=== PATIENT | male | born 1940 | race Caucasian/White ===

== ENCOUNTER 2020-06-19 08:55 | Inpatient (IN) ==
[2020-06-13 12:44] LABS: Basophils % 0.9 % (0.0-0.8); Hematocrit 38.5 VOL% (42.0-52.0); Hemoglobin 12.6 GM/DL (14.0-18.0); Immature Granulocytes % 0.6 %; Immature Granulocytes Absolute 0.02 #; Lymphocytes # 1.1 10*3/uL (1.4-4.0); Lymphocytes % 30.6 % (21.2-54.2); Mean Corpuscular HGB Conc 32.7 GM/DL (32-36); Mean Corpuscular Volume 88.1 FL (87-102); Mean Platelet Volume 11.1 FL (9.6-12.0); Monocytes % 13.6 % (1.7-12.7); Neutrophils % 54.3 % (38.7-73.9); Platelet Count 181 T/CUMM (130-400); Red Blood Count 4.37 MC/CUMM (3.8-5.5); Red Cell Distribution Width 12.9 % (9.3-17.3); White Blood Count 3.5 T/CUMM (4-12)
[2020-06-13 13:15] LABS: Albumin 3.7 G/DL (3.4-5.0); Bilirubin,Total 0.5 MG/DL (0.2-1.0); Calcium 8.8 MG/DL (8.5-10.1); Osmolality,Calculated 283.3 MOS/KG (273-304); Potassium 4.4 MMOL/L (3.5-5.1); Total Protein 6.6 G/DL (6.4-8.2)
[~2020-06-19 08:55] MED LIST: ACETAMINOPHEN 500 MG TABLET PO ONE; FAMOTIDINE 20 MG TABLET PO ONE; cefTRIAXone 1,000 MG in SYRINGE 1 EACH IV ONE
[2020-06-19] MEDS ORDERED: LACTATED RINGERS 1,000 ML IV SCH (09:30)
[2020-06-19] MEDS ORDERED: FAMOTIDINE 20 MG/2 ML VIAL IV STA (10:06)
[2020-06-19] MEDS ORDERED: FAMOTIDINE 20 MG/2 ML VIAL IV ONE (10:09)
[2020-06-19] MEDS ORDERED: ROCURONIUM 50 MG/5 ML VIAL IV ONE (12:05)
[2020-06-19] MEDS ORDERED: propofoL 200 MG/20 ML VIAL IV ONE (12:05)
[2020-06-19] MEDS ORDERED: ETOMIDATE 40 MG/20 ML VIAL IV ONE (12:05)
[2020-06-19] MEDS ORDERED: LIDOCAINE 2% 5 ML VIAL ONE (12:05)
[2020-06-19] MEDS ORDERED: ONDANSETRON 4 MG/2 ML VIAL ONE (12:05)
[2020-06-19] MEDS ORDERED: PHENYLEPHRINE 1 MG/10 ML SYRINGE IV ONE (12:05)
[2020-06-19] MEDS ORDERED: SEVOFLURANE 1 UNIT/15 MINUTE INH ONE (12:05)
[2020-06-19] MEDS ORDERED: MIDAZOLAM 2 MG/2 ML VIAL ONE ×2 (12:07→13:44)
[2020-06-19] MEDS ORDERED: fentaNYL 250 MCG/5 ML VIAL ONE (12:07)
[2020-06-19] MEDS ORDERED: LIDOCAINE 1%/EPI INJ 20 ML VIAL ONE (12:31)
[2020-06-19] MEDS ORDERED: BUPIVACAINE MPF 0.25% 30 ML VIAL ONE (12:31)
[2020-06-19] MEDS ORDERED: TISSUE ADHESIVE 1 EACH APPLICATOR TOP ONE (12:31)
[2020-06-19] MEDS ORDERED: INDIGO CARMINE 5 ML AMP ONE (12:31)
[2020-06-19] MEDS ORDERED: BUPIVACAINE LIPOSOMAL 20 ML/266 MG VIAL ONE (12:50)
[2020-06-19] MEDS ORDERED: ePHEDrine 50 MG/ML VIAL ONE (14:13)
[2020-06-19 15:21] LABS: Bilirubin,Urine Negative (Negative); Blood, Urine Small mg/dL (Negative); Glucose,Urine (UA) Negative (Negative); Ketones,Urine Negative (Negative); Mucus,Urine Occasional /LPF (Occasional); Nitrite,Urine Negative (Negative); Protein,Urine Negative; RBC,Urine 32 /HPF (0-4); Squamous Epithelial Cell,Urine Occasional /HPF (0-10); Urine Appearance CLEAR (Clear); Urine Color Straw (Yellow); Urine Specific Gravity 1.011 (1.001-1.035); Urine Urobilinogen < 2.0 EU/DL (0.2-1.0); WBC,Urine 2 /HPF (0-6)
[2020-06-19] MEDS ORDERED: ACETAMINOPHEN 325 MG TABLET PO PRN (15:33)
[2020-06-19] MEDS ORDERED: PROMETHAZINE 25 MG/1 ML VIAL IM PRN (15:33)
[2020-06-19] MEDS ORDERED: HYDROmorphone 2 MG/1 ML VIAL IV PRN (15:33)
[2020-06-19] MEDS ORDERED: ONDANSETRON 4 MG/2 ML VIAL IV PRN ×2 (15:33→16:09)
[2020-06-19] MEDS ORDERED: SIMETHICONE CHEW 80 MG TABLET PO PRN (15:36)
[2020-06-19] MEDS ORDERED: MAGNESIUM HYDROXIDE SUSP 30 ML UDCUP PO PRN (15:37)
[2020-06-19] MEDS: HYDROmorphone 2 MG/1 ML VIAL IV PRN ×3 (16:02→16:30)
[2020-06-19 16:11] LABS: Basophils % 0.6 % (0.0-0.8); Hematocrit 35.3 VOL% (42.0-52.0); Hemoglobin 11.5 GM/DL (14.0-18.0); Immature Granulocytes % 0.3 %; Immature Granulocytes Absolute 0.01 #; Lymphocytes # 1.5 10*3/uL (1.4-4.0); Lymphocytes % 46.6 % (21.2-54.2); Mean Corpuscular HGB Conc 32.6 GM/DL (32-36); Mean Corpuscular Volume 87.4 FL (87-102); Mean Platelet Volume 10.5 FL (9.6-12.0); Monocytes % 12.2 % (1.7-12.7); Neutrophils % 40.3 % (38.7-73.9); Platelet Count 104 T/CUMM (130-400); Red Blood Count 4.04 MC/CUMM (3.8-5.5); Red Cell Distribution Width 13.2 % (9.3-17.3); White Blood Count 3.1 T/CUMM (4-12)
[2020-06-19] MEDS: BELLADONNA/OPIUM 30 MG SUPP RECTAL SCH ×2 (16:26→21:59)
[2020-06-19 16:47] LABS: Calcium 8.3 MG/DL (8.5-10.1); Osmolality,Calculated 284.1 MOS/KG (273-304)
[2020-06-19] MEDS: ACETAMINOPHEN 325 MG TABLET PO SCH ×2 (19:59→23:13)
[2020-06-19] MEDS: SERTRALINE 25 MG TABLET PO SCH (21:58)
[2020-06-19] MEDS: OXYBUTYNIN 5 MG TABLET PO SCH (21:58)
[2020-06-20] MEDS: SODIUM CHLORIDE 0.9% 1,000 ML IV SCH ×2 (00:57→18:36)
[2020-06-20 04:08] LABS: Basophils % 0.5 % (0.0-0.8); Hematocrit 34.7 VOL% (42.0-52.0); Hemoglobin 11.3 GM/DL (14.0-18.0); Immature Granulocytes % 0.7 %; Immature Granulocytes Absolute 0.03 #; Lymphocytes # 0.7 10*3/uL (1.4-4.0); Lymphocytes % 16.4 % (21.2-54.2); Mean Corpuscular HGB Conc 32.6 GM/DL (32-36); Mean Corpuscular Volume 88.1 FL (87-102); Monocytes % 10.4 % (1.7-12.7); Platelet Count 101 T/CUMM (130-400); Red Blood Count 3.94 MC/CUMM (3.8-5.5); Red Cell Distribution Width 13.2 % (9.3-17.3); White Blood Count 4.1 T/CUMM (4-12)
[2020-06-20 04:24] LABS: Calcium 8.2 MG/DL (8.5-10.1); Osmolality,Calculated 278.5 MOS/KG (273-304); Potassium 4.2 MMOL/L (3.5-5.1)
[2020-06-20] MEDS: ACETAMINOPHEN 325 MG TABLET PO SCH ×4 (05:23→23:02)
[2020-06-20] MEDS ORDERED: BELLADONNA/OPIUM 30 MG SUPP RECTAL PRN (08:35)
[2020-06-20] MEDS ORDERED: BISACODYL 5 MG TABLET PO SCH (09:00)
[2020-06-20] MEDS: FINASTERIDE 5 MG TABLET PO SCH (09:42)
[2020-06-20] MEDS: lisinopriL 20 MG TABLET PO SCH (09:42)
[2020-06-20] MEDS: POLYETHYLENE GLYCOL POWDER 17 GM PACK PO SCH (09:43)
[2020-06-20] MEDS: PANTOPRAZOLE 40 MG TABLET PO SCH (09:43)
[2020-06-20] MEDS: amLODIPine 10 MG TABLET PO SCH (09:43)
[2020-06-20] MEDS: OXYBUTYNIN 5 MG TABLET PO SCH ×3 (09:43→21:03)
[2020-06-20] MEDS ORDERED: cefTRIAXone 1,000 MG in SODIUM CHLORIDE 0.9% 100 ML IV SCH (10:00)
[2020-06-20] MEDS: SERTRALINE 25 MG TABLET PO SCH (21:03)
[2020-06-21] MEDS: SODIUM CHLORIDE 0.9% 1,000 ML IV SCH (01:36)
[2020-06-21] MEDS: ACETAMINOPHEN 325 MG TABLET PO SCH (05:24)
[2020-06-21 07:42] VITALS: BP 145/51
[2020-06-21] MEDS: amLODIPine 10 MG TABLET PO SCH (08:25)
[2020-06-21] MEDS: lisinopriL 20 MG TABLET PO SCH (08:25)
[2020-06-21] MEDS: FINASTERIDE 5 MG TABLET PO SCH (08:25)
[2020-06-21] MEDS: POLYETHYLENE GLYCOL POWDER 17 GM PACK PO SCH (08:25)
[2020-06-21] MEDS: OXYBUTYNIN 5 MG TABLET PO SCH (08:25)
[2020-06-21] MEDS: PANTOPRAZOLE 40 MG TABLET PO SCH (08:29)
[2020-06-23 15:16] LABS: Stone Analysis Interpretation SEE COMMENTS
== END 2020-06-21 09:55 | disposition home or self-care (01) | DRG 664 ==
LOC: N.OR 08:55 → N.SDSINP 08:57 → N.4E 16:49
PROVIDERS: ADMIT Surgery; ATTEND Surgery